=== PATIENT | male | born 1940 | race Caucasian/White ===

== ENCOUNTER 2017-07-18 13:18 | Emergency (ER) | payer MEDICARE, OTHER ==
[~2017-07-18] VITALS: Ht 170.2 cm; Wt 65.0 kg
[~2017-07-18 13:18] MED LIST: ALEVE220 M1 PO; CALCIUM 600600 M1 PO; CEPHALEXIN500 MG PO; FLOMAX0.4 M1 PO; LORTAB 1010 MG PO; LORTAB 7.57.5 MG PO; MULTI VIT PO; MULTIVITAM10 OR; MULTIVITAMIN PO; VIAGRA100 MG PO; [UNRECOGNIZED DRUG - OTHER] PO
[2017-07-18] MEDS ORDERED: KEFLEX500 M1 PO (14:02)
[2017-07-18 14:09] VITALS: BP 128/75
== END 2017-07-18 14:09 | disposition home or self-care (01) ==
LOC: ED 13:18
DX: L03.113 Cellulitis of right upper limb (principal); I10 Essential (primary) hypertension

== ENCOUNTER 2021-08-09 16:58 | Emergency (ER) | payer MEDICARE ==
[~2021-08-09] VITALS: Ht 170.2 cm; Wt 65.0 kg
[~2021-08-09 16:58] MED LIST changes: +KEFLEX500 M1 PO
[2021-08-09] MEDS ORDERED: KEFLEX500 MG PO (18:20)
[2021-08-09 18:22] VITALS: BP 149/92
== END 2021-08-09 18:32 | disposition home or self-care (01) ==
LOC: ED 16:58
DX: S81.811A Laceration without foreign body, right lower leg, initial encounter (principal); I10 Essential (primary) hypertension; W22.09XA Striking against other stationary object, initial encounter; Y92.009 Unspecified place in unspecified non-institutional (private) residence as the place of occurrence of the external cause

== ENCOUNTER 2024-05-30 13:48 | Emergency (ER) | payer MEDICARE ==
[~2024-05-30] VITALS: Ht 170.2 cm; Wt 64.0 kg
[2024-05-30] VITALS (7 sets, daily range): BP systolic 129–143; BP diastolic 63–71
[~2024-05-30 13:48] MED LIST changes: +KEFLEX500 MG PO
[2024-05-30 14:23] LABS: BASO% 0.2 % (0-3); EOS% 2.2 % (0-8); HEMOGLOBIN 12.6 g/dl (14.0-18.0); IMMATURE GRANULOCYTES 0.2 % (0.0-5.0); LYMPH% 9.6 % (15-41); MEAN CELL VOLUME 99.7 fL CALC (80.0-100.0); MEAN CORPUSCULAR HGB 33.1 pG CALC (26.0-32.0); MEAN CORPUSCULAR HGB CONC 33.2 g/dL CAL (32.0-36.0); MONO% 9.4 % (2-13); NEUT# 10.19 thou/uL (1.82-7.42); NEUT% 78.4 % (42-76); RED BLOOD COUNT 3.81 mill/uL (4.70-6.10)
[2024-05-30 14:24] LABS: URINE BILIRUBIN - DIPSTICK Negative (NEGATIVE); URINE BLOOD DIPSTICK Negative (NEGATIVE); URINE GLUCOSE - DIPSTICK Negative (NEGATIVE); URINE KETONE Negative (NEGATIVE); URINE LEUK ESTERASE Negative (NEGATIVE); URINE NITRITE - DIPSTICK Negative (Negative); URINE PH 6.5 (4.5-8.0); URINE PROTEIN - DIPSTICK 30 mg/dL (NEG-TRACE)
[2024-05-30 14:34] LABS: ALBUMIN 3.7 g/dL (3.2-5.0); ANION GAP 11 (6-22 (CALC)); BUN 27 mg/dL (8-23); BUN/CREATININE RATIO 27 (12-20 (CALC)); CARBON DIOXIDE 30 mmol/l (22-30); CHLORIDE 100 mmol/l (95-108); ESTIMATED GFR 74 ML/MIN (>=90 (CALC)); LIPASE 97 u/l (23-300); POTASSIUM 4.3 mmol/l (3.5-5.1); SODIUM 137 mmol/l (137-146); TOTAL PROTEIN 6.5 g/dL (6.3-8.2)
[2024-05-30 14:35] LABS: ALKALINE PHOSPHATASE 238 u/l (38-126); SGOT/AST 215 u/l (19-48)
[2024-05-30 14:42] LABS: URINE COLOR Yellow
[2024-05-30 14:45] LABS: URINE RBC 0-2 RBC/hpf (0-5); URINE SQUAMOUS EPITHELIAL CELL RARE EPI/hpf (0-FEW)
== END 2024-05-30 18:10 | disposition home or self-care (01) ==
LOC: ED 13:48
PROVIDERS: Family Medicine
DX: R10.13 Epigastric pain (principal); I10 Essential (primary) hypertension; K21.9 Gastro-esophageal reflux disease without esophagitis